=== PATIENT | female | born 1950 | race Caucasian/White ===

== ENCOUNTER 2018-05-03 12:00 | Outpatient (CLI) | payer MEDICARE, SELFPAY | END 2018-05-03 12:01 | PROVIDERS: Visit Provider Surgery | DX: Z85.038 Personal history of other malignant neoplasm of large intestine (principal) | CPT/HCPCS: 99214 ==

== ENCOUNTER 2018-05-30 13:36 | Emergency (ER) | payer MEDICARE, SELFPAY ==
[2018-05-30 13:47] VITALS: BP 155/89; PULSE 104; RESP 20; TEMP 36.2; O2SAT 96
[2018-05-30] MEDS: Normal Saline 1,000 ML 1000 ML IV (14:13)
[2018-05-30 14:15] LABS: Abs Immature Grans 0.02 k/cumm (0.0-0.09); Absolute Basophil Count 0.01 k/cumm (0.0-0.2); Absolute Eosinophil Count 0.01 k/cumm (0.0-0.7); Absolute Lymphocyte Count 0.78 k/cumm (1.2-3.4); Absolute Monocyte Count 0.13 k/cumm (0.11-0.7); Absolute Neutrophil Count 8.22 k/cumm (1.2-6.7); Basophils % 0.1; Eosinophils % 0.1; HCT 38.2 % (36.0-46.0); HGB 11.9 g/dL (12.0-15.5); Immature Grans % 0.2; Lymphocytes % 8.5; Mean Corp. HGB Concentration 31.2 g/dL (32.0-36.0); Mean Corpuscular Hemoglobin 24.8 pg (27.0-33.0); Mean Corpuscular Volume 79.6 fL (80-95); Mean Platelet Volume 8.6 fL (8.0-11.0); Monocytes % 1.4; Neutrophils % 89.7; Platelet Count 303 x1000/uL (130-400); RBC Distribution Width 17.4 % (11.7-14.6); White Blood Cell Count 9.17 k/cumm (4.4-10.8)
[2018-05-30] MEDS: fentaNYL 100 MCG/2 ML VIAL IVP (14:15)
--- NOTE | 2018-05-30 14:17 | ED.GENADUL_ITS ---
Discharge Plan Discharge Details Chief Complaint: Abd Prob Clinical Impression: Metastatic cancer, Acute UTI, Abdominal pain Reason For Visit: nausea Primary Care Provider: PATEL,LOCAL ED Provider: Jan Roth Disposition Patient Disposition: HOME Home Meds and New Rx's Prescriptions: New prochlorperazine maleate [Compazine] 10 mg tablet 10 mg PO Q8H PRN (Reason: nausea and vomiting) Qty: 14 RF: 0 nitrofurantoin monohyd/m-cryst [Macrobid] 100 mg capsule 100 mg PO BID Qty: 14 RF: 0 Continue hydromorphone [Dilaudid] 2 mg Tablet 1 tab PRN PRNRF: 0 furosemide 40 mg Tablet 40 mg PO DAILY RF: 0 Discharge Instructions Instructions: Acute Nausea and Vomiting (ED) Additional Instructions: your cat scan showed that your cancer is worsening follow up with your oncologist within a week if you have persistent vomit, fevers or severe worsening of pain return to the emergency department Discharge Data Discharge Physician: Jan Roth Medical Decision Making MDM Narrative Medical decision making narrative: 67 yo male with hx of colon cancer undergoing chemotherapy comes in with complaint of nausea and vomit for 4-5 days and abdominal pain for over a month. Denies chest pain or sob or fevers. Has mild tenderness on exam in the left quadrant without guarding or rebound. Will treat her symptoms, eval for pancreatitis and hepatitis and image to eval for possible sbo among other pathology pt feels significantly better, tolerating fluids at this time. Labs show no significant changes, her UA is suspicious for uti so will start abx for this, awaiting ct CT per vrad shows metastatic disease progression of her cancer, and mild hydronephrosis on the left due to this. Otherwise no acute findings. I discussed with her these results and she understands that her cancer is worsening. She is currently feeling well and stable for d/c. She understands she needs to see her oncologist this week. She will return to the emergency department for worsening symptoms Differential Diagnosis chemo side effects, sbo, colitis Medical Records Medical records reviewed: Yes I reviewed the patient's medical records. Imaging Data Radiologic Study: Attestation: I personally reviewed and interpreted this imaging study as follows: Imaging: CT Scan Radiologist's impression: vrad report reviewed Lab Data Lab results reviewed: Yes I reviewed the patient's lab results. HPI - General Adult General Mode of arrival: wheelchair . Date/Time Provider Initiated Documentation: 05/30/18 14:01 . Limitations to Documentation: no limitations . Information obtained by: patient . History of Present Illness 67 year old F presents to the emergency department with the chief complaint of nausea and vomit, described as severe, with intensity rated at 6. Quality is described as other (nausea), and is localized to the abdomen. Patient reports no radiation. Patient started experiencing this day(s) (5) and it has been constant. No relieving factors improve symptom(s), No exacerbating factors reported . Patient notes other (abdominal pain). Patient did receive the following treatments prior to arrival, other (zofran) Related Data Home Medications Medication Instructions Recorded Confirmed furosemide 40 mg PO DAILY 05/30/18 05/30/18 hydromorphone [Dilaudid] 1 tab PRN PRN 05/30/18 05/30/18 Previous Rx's Medication Instructions Recorded nitrofurantoin monohyd/m-cryst 100 mg PO BID #14 cap 05/30/18 [Macrobid] prochlorperazine maleate 10 mg PO Q8H PRN #14 tab 05/30/18 [Compazine] Allergies Allergy/AdvReac Type Severity Reaction Status Date / Time moxifloxacin [From Avelox] Allergy Severe Anaphylaxsi Unverified 05/21/18 13:23 s ibuprofen Allergy Intermediate Hives, Unverified 05/21/18 13:23 bleeding ondansetron [From Zofran] AdvReac Unverified 05/21/18 13:23 General Stated Complaint: Abd Prob EDSON: 3 Review of Systems Review of Systems All systems reviewed & are unremarkable except as noted in HPI and below Constitutional Denies chills, Denies fever(s) and Denies weakness Eyes Patient Denies loss of vision ENT Denies change in voice Cardiovascular Denies chest pain and Denies dyspnea Respiratory Denies dyspnea Gastrointestinal Reports abdominal pain, Reports nausea and Reports vomiting Genitourinary Denies dysuria Musculoskeletal Denies joint swelling Integumentary/Breasts Denies rash Neurologic Denies loss of vision and Denies weakness Psychiatric Denies depression Endocrine Denies cold intolerance and Denies heat intolerance Allergic/Immunologic Reports urticaria PFSH Medical History Abnormal vaginal bleeding COPD (chronic obstructive pulmonary disease) Morbid obesity with BMI of 40.0-44.9, adult Uterine fibroid Social History Smoking/Tobacco Use Status: Former Tobacco Use Surgical History Abdominal hysterectomy (~2001) section (~1982) Cholecystectomy (11/26/14) Colonoscopy - MAC (12/02/17) Oophrectomy, Both (~2001) Exam Const General: no acute distress HENMT Head: normal to inspection Ears: external ears normal General nose exam: external nose normal Mouth: moist mucous membranes Eyes General: appearance normal, both eyes and all related structures Neck Neck: normal visual inspection Resp Effort & Inspection: normal respiratory effort and able to speak in complete sentences Cardio Rate: regular rate GI Inspection: other (ostomy in place with brown stool in ostomy bag) Palpation: soft, not firm, no guarding, no hepatomegaly and tender in the LUQ Skin General skin exam: no rashes or lesions noted Neuro General: alert and oriented x3 Extrem General: normal to inspection Psych Mental Status: mental status grossly normal Course Vital Signs Temperature 36.2 C L 05/30/18 13:47 Pulse 104 H 05/30/18 13:47 Respiratory Rate 20 05/30/18 13:47 Blood Pressure 155/89 H 05/30/18 13:47 Pulse Oximetry 96 05/30/18 13:47 Temperature 36.2 C L 05/30/18 13:47 Pulse 104 H 05/30/18 13:47 Respiratory Rate 20 05/30/18 13:47 Blood Pressure 155/89 H 05/30/18 13:47 Pulse Oximetry 96 05/30/18 13:47
[2018-05-30 14:27] LABS: ALT 29 U/L (12-78); AST 21 U/L (15-37); Albumin 2.4 g/dL (3.4-5.0); Alkaline Phosphatase 140 U/L (46-116); Anion Gap 4.7 mmol/L (3-11); BUN 11 mg/dL (7-18); Bilirubin, Total 0.6 mg/dL (0.2-1.0); CO2 28.3 mmol/L (21.0-32.0); CREATININE 0.68 mg/dL (0.55-1.02); Calcium 8.5 mg/dL (8.5-10.1); Chloride 102 mmol/L (98-107); Glucose 127 mg/dL (70-100); Lipase 115 U/L (73-393); Potassium 4.1 mmol/L (3.5-5.1); Sodium 135 mmol/L (136-145)
[2018-05-30 14:49] LABS: Bilirubin Negative (Negative); Blood Large (Negative); Clarity Sl Cloudy; Glucose Negative (Negative); Ketones Trace mg/dL (Negative); Leukocyte Esterase Small (Negative); Nitrite Positive (Negative); Specific Gravity >= 1.030 (1.005-1.025); Urobilinogen 0.2 EU/dL (Up TO 0.2)
[2018-05-30] MEDS: Omnipaque 350 MG/ML 100 ML BTL IJ (14:55)
--- NOTE | 2018-05-30 14:57 | DI.CT_ITS ---
SYMPTOMS/DIAGNOSIS: ABDOMINAL PAIN, RECEIVING CHEMO FOR COLON CA CT OF THE ABDOMEN AND PELVIS: Images were performed from the lung bases through the ischial tuberosities after IV and without oral contrast. Comparison is made with October,. The lung bases are clear. There is a low density lesion seen inferiorly in the right lobe of the liver, suspicious for a metastasis. There is an additional peripheral lesion in the right lobe, which appears larger when compared with the previous exam and may also represent a metastatic lesion. The patient is status post cholecystectomy. There is stable mild biliary dilatation. The spleen, adrenals and pancreas are unremarkable. There are peripelvic renal cysts. The patient is now status post a left lower quadrant colostomy. The patient is again noted to be status post hysterectomy. There is marked wall thickening of the rectosigmoid in the region of the previously noted mass, worsening when compared with the previous exam. There is interval enlargement of the mass involving the posterior bladder and cervix which shows air bubbles which could indicate fistula formation or infection. This could represent metastases vs direct extension of tumor. The findings have worsened when compared with the previous exam. There is dilatation of the left renal pelvis and ureter extending down to the level of the bladder. There is no evidence of bowel obstruction. No adenopathy is seen. No lytic or blastic bony lesions are identified. IMPRESSION: Interval enlargement of mass in the sigmoid. Interval enlargement of mass at the posterior aspect of the bladder and cervix with multiple air bubbles, which could be related to fistula formation or infection. There is moderate left hydronephrosis secondary to the mass invading the posterior bladder.
[2018-05-30 15:00] LABS: C & S Indicated? Yes
[2018-05-30] MEDS: MacroBID 100 MG CAP PO (15:38)
--- NOTE | 2018-05-30 16:09 | DI.VRAD_ITS ---
EXAM: CT Abdomen and Pelvis With Intravenous Contrast EXAM DATE/TIME: 05/30/2018 2:08 PM CLINICAL HISTORY: 67 years old, female; Pain; Abdominal pain; Generalized; Patient HX: Abd pain, on chemo for colon CA TECHNIQUE: Axial computed tomography images of the abdomen and pelvis with intravenous contrast. All CT scans at this facility use at least one of these dose optimization techniques: automated exposure control; mA and/or kV adjustment per patient size (includes targeted exams where dose is matched to clinical indication); or iterative reconstruction. Coronal and sagittal reformatted images were created and reviewed. CONTRAST: 100 ml of omni 350 administered intravenously. COMPARISON: No relevant prior studies available. FINDINGS: Lower thorax: No acute findings. ABDOMEN: Liver: 10 mm hypodensity in the right lobe the liver 46 Hounsfield units. This likely represents metastatic disease. Additional 9 mm hypodensity in the right lobe of the liver. 30 Hounsfield units. May also represent metastatic disease. Gallbladder and bile ducts: Cholecystectomy Pancreas: Normal. No ductal dilation. Spleen: Normal. No splenomegaly. Adrenals: Normal. No mass. Kidneys and ureters: Left hydronephrosis and left hydroureter. The ureter inserts into inflamed segment of the bladder containing 3 cm bladder wall thickening . Stomach and bowel: Left lower quadrant ostomy. The rectosigmoid is markedly thickened and inflamed consistent with a history of colon cancer. Appendix: No evidence of appendicitis. PELVIS: Bladder: See Intraperitoneal Space Finding. Reproductive: Unremarkable as visualized. ABDOMEN and PELVIS: Intraperitoneal space: There is a complex mass with a bubble of air 6.9 x 5.6 cm. It is contiguous with the bladder (7:76). There is bladder wall thickening in the posterior bladder. This is worrisome for metastatic disease to the bladder. There may be necrotic component considering a bubble of air. Infection cannot be ruled out. Bones/joints: No acute fracture. No dislocation. Soft tissues: Unremarkable. Vasculature: Normal. No abdominal aortic aneurysm. Lymph nodes: Normal. No enlarged lymph nodes. Other findings: Multiple right pararenal cysts. IMPRESSION: 1. There is a complex mass with a bubble of air 6.9 x 5.6 cm. It is contiguous with the bladder (7:76). There is bladder wall thickening in the posterior bladder. This is worrisome for metastatic disease to the bladder. There may be necrotic component considering a bubble of air. Infection cannot be ruled out. 2. Left hydronephrosis and left hydroureter. The ureter inserts into inflamed segment of the bladder containing 3 cm bladder wall thickening . 3. Left lower quadrant ostomy. 4. The rectosigmoid is markedly thickened and inflamed consistent with a history of colon cancer. 5. 10 mm hypodensity in the right lobe the liver 46 Hounsfield units. This likely represents metastatic disease. Additional 9 mm hypodensity in the right lobe of the liver. 30 Hounsfield units. May also represent metastatic disease. THIS REPORT CONTAINS FINDINGS THAT MAY BE CRITICAL TO PATIENT CARE. The findings were verbally communicated via telephone conference with Jan Roth at 4:09 PM EDT on 05/30/2018. The findings were acknowledged and understood. Dictated and Authenticated by: Anuja Thompson MD. Ordering:CIRA HERNANDEZ MD
--- NOTE | 2018-05-31 10:29 | PDOC.ERCMPRO ---
Care Management Progress Note 05/31-Dr. Roth requested assistance with an oncology f/u appt this week for nausea and vomiting. H/O of Colon cancer. CT shows metastatic disease progression of her cancer. Called [facility] and they are closed as it is a holiday. This CM will call tomorrow morning and schedule a f/u appt, [phone].
== END 2018-05-30 16:29 | disposition home or self-care (01) ==
PROVIDERS: Emergency Provider Emergency Medicine
DX: N39.0 Urinary tract infection, site not specified (principal); R11.2 Nausea with vomiting, unspecified; R10.12 Left upper quadrant pain; R93.2 Abnormal findings on diagnostic imaging of liver and biliary tract; R93.41 Abnormal radiologic findings on diagnostic imaging of renal pelvis, ureter, or bladder; C19 Malignant neoplasm of rectosigmoid junction; Z79.899 Other long term (current) drug therapy; N13.39 Other hydronephrosis; N13.4 Hydroureter; Z93.3 Colostomy status; J44.9 Chronic obstructive pulmonary disease, unspecified; Z87.891 Personal history of nicotine dependence
CPT/HCPCS: 36415; 51701; 80053; 83690; 87077; 96361; 96365; 96375; 99285; 74177; 81003; 81015; 85025; 87086; 87186; J3010; J3490

== ENCOUNTER 2018-06-02 00:45 | Outpatient (CLI) | payer MEDICARE, SELFPAY ==
--- NOTE | 2018-06-02 11:50 | DI.CT_ITS ---
SYMPTOMS/DIAGNOSIS: RECTAL CANCER, C20 CT SCAN OF THE CHEST: CT scan of the chest was performed without intravenous contrast. IV contrast was not administered due to lack of IV access. There are no priors for comparison. There is atherosclerosis of the thoracic aorta, but no aneurysmal dilatation is present. The heart size is within normal limits. No significant pericardial effusion is seen. No significant mediastinal or hilar adenopathy is present. The patient has an Infusaport catheter. The tip of the catheter is in good position in the superior vena cava. No pleural effusion or pneumothorax is identified. There are a few small, noncalcified pulmonary nodules present. No focal consolidating infiltrates are seen. The tracheobronchial tree is unremarkable. No suspicious lytic or sclerotic lesions are present in the bone. IMPRESSION: 1. Noncontrast CT scan of the chest was performed due to lack of IV access. 2. Noncalcified pulmonary nodules present, raising the question of pulmonary metastatic disease.
== END 2018-06-02 01:05 ==
PROVIDERS: Visit Provider Internal Medicine Hematology & Oncology
DX: C20 Malignant neoplasm of rectum (principal); R91.8 Other nonspecific abnormal finding of lung field
CPT/HCPCS: 71250

== ENCOUNTER 2018-06-04 14:17 | Emergency (ER) | payer MEDICARE, SELFPAY ==
[2018-06-04] VITALS (47 sets, daily range): BP systolic 106–135; BP diastolic 55–88; PULSE 85–106; RESP 9–27; TEMP 36.5; O2SAT 92–98
[2018-06-04 14:41] LABS: Abs Immature Grans 0.01 k/cumm (0.0-0.09); Absolute Basophil Count 0.02 k/cumm (0.0-0.2); Absolute Lymphocyte Count 0.99 k/cumm (1.2-3.4); Absolute Monocyte Count 0.43 k/cumm (0.11-0.7); Absolute Neutrophil Count 3.78 k/cumm (1.2-6.7); Basophils % 0.4; HCT 34.3 % (36.0-46.0); HGB 10.7 g/dL (12.0-15.5); Immature Grans % 0.2; Lymphocytes % 18.9; Mean Corp. HGB Concentration 31.2 g/dL (32.0-36.0); Mean Corpuscular Hemoglobin 25.1 pg (27.0-33.0); Mean Corpuscular Volume 80.5 fL (80-95); Mean Platelet Volume 8.3 fL (8.0-11.0); Monocytes % 8.2; Neutrophils % 72.3; Platelet Count 279 x1000/uL (130-400); RBC 4.26 m/cumm (4.00-5.20); RBC Distribution Width 17.3 % (11.7-14.6); White Blood Cell Count 5.23 k/cumm (4.4-10.8)
[2018-06-04] MEDS: fentaNYL 100 MCG/2 ML VIAL IVP (14:44)
--- NOTE | 2018-06-04 14:45 | ED.GENADUL_ITS ---
Discharge Plan Disposition Patient Disposition: HOME Condition: Stable Discharge Details Chief Complaint: Chest Pain Clinical Impression: Chest pain Primary Care Provider: PATEL,LOCAL ED Provider: Jan Roth Home Meds and New Rx's Prescriptions: Continue hydromorphone [Dilaudid] 2 mg Tablet 1 tab PRN PRNRF: 0 furosemide 40 mg Tablet 40 mg PO DAILY RF: 0 prochlorperazine maleate [Compazine] 10 mg tablet 10 mg PO Q8H PRN (Reason: nausea and vomiting) Qty: 14 RF: 0 nitrofurantoin monohyd/m-cryst [Macrobid] 100 mg capsule 100 mg PO BID Qty: 14 RF: 0 Discharge Instructions Instructions: Chest Pain (ED) Discharge Data Discharge Physician: Jan Roth Medical Decision Making MDM Narrative Medical decision making narrative: 67 yo female with hx of colorectal cancer who comes in with complaints of chest pain. She states she has a hx of esophageal spasms and feels this is similar. She was getting IVF and they had just accessed her port at the cancer center when she started to have pain in her chest. She denies radiation of the mikayla and localizes in the anterior mid chest. no n/v, fevers, chills, sob, cough, diarphoresis. She has had recent CT' s showing progression of her cancer. Her pain doesn't seem typical of acs, HEART score is 3 based on age and risk factors, will send troponin. I did recommend that we perofrm CTA to eval for PE given her cancer history and moderate wells score. the patient declined to have this as she had a CT of her chest without contrast earlier this week and has the capacity to make her own deciions and understands the risks of not pursuing w/u with CTA including and disability and is willing to take these risks. She was advised to advise me if she changes her mind on the CTA. Unlikely dissection given lack of tearing back pain and normal vascular exam so doubt dissection but given she decilnes CT can't adequately rule this out which she understands. No cough or fevers and clear lungs and no pleuritic chest pain so doubt pna and ptx so do not feel chest xray indicated pt stood up and states her pain went away completely after this. She has no signficant new lab abnormalities, first troponin negative, will order delta troponin, remains HD stable. Still declines CTA pt remains without chest pain now after standing, second troponin negative and still declines CTA. She has no pcp so will have her on our f/u list to try and get into one for f/u return precautions given Differential Diagnosis nstemi, unstable angina, angina, chest wall pain, mets, esophageal spasm Lab Data Lab results reviewed: Yes I reviewed the patient's lab results. ECG Data Attestation: I personally reviewed and interpreted this ECG (s) as follows: Prior ECG tracings: not available for review Interpretation: sinus tachycardia, normal axis, rate of 103, normal pr, no acute ischemic findings HPI - General Adult General Mode of arrival: EMS . Date/Time Provider Initiated Documentation: 06/04/18 14:20 . Limitations to Documentation: no limitations . Information obtained by: patient . History of Present Illness 67 year old F presents to the emergency department with the chief complaint of chest pain, described as moderate, with intensity rated at 5. Quality is described as aching, and is localized to the chest. Patient reports no radiation. Patient started experiencing this minute(s) (90) and it has been constant. No relieving factors improve symptom(s), No exacerbating factors reported . Patient notes no other symptoms.. Patient did receive the following treatments prior to arrival, none and other (324mg asa given by ems) Related Data Home Medications Medication Instructions Recorded Confirmed furosemide 40 mg PO DAILY 05/30/18 05/30/18 hydromorphone [Dilaudid] 1 tab PRN PRN 05/30/18 05/30/18 Previous Rx's Medication Instructions Recorded nitrofurantoin monohyd/m-cryst 100 mg PO BID #14 cap 05/30/18 [Macrobid] prochlorperazine maleate 10 mg PO Q8H PRN #14 tab 05/30/18 [Compazine] Allergies Allergy/AdvReac Type Severity Reaction Status Date / Time moxifloxacin [From Avelox] Allergy Severe Anaphylaxsi Unverified 05/21/18 13:23 s ibuprofen Allergy Intermediate Hives, Unverified 05/21/18 13:23 bleeding ondansetron [From Zofran] AdvReac Unverified 05/21/18 13:23 General Stated Complaint: Chest Pain EDSON: 2 Review of Systems Review of Systems All systems reviewed & are unremarkable except as noted in HPI and below Constitutional Denies chills, Denies fever(s) and Denies weakness Eyes Patient Denies loss of vision ENT Denies change in voice Cardiovascular Reports chest pain and Denies dyspnea Respiratory Denies dyspnea Gastrointestinal Denies abdominal pain, Denies nausea and Denies vomiting Genitourinary Denies dysuria Musculoskeletal Denies joint swelling Integumentary/Breasts Denies rash Neurologic Denies loss of vision and Denies weakness Psychiatric Denies depression Endocrine Denies cold intolerance and Denies heat intolerance Allergic/Immunologic Reports urticaria Exam Const General: no acute distress Orientation: alert HENMT Head: normal to inspection Ears: external ears normal General nose exam: external nose normal Mouth: moist mucous membranes Eyes General: appearance normal, both eyes and all related structures Neck Neck: normal visual inspection Resp Effort & Inspection: normal respiratory effort, able to speak in complete sentences, normal respiratory pattern and no audible wheezes Cardio Jugular venous pressure: no JVD Rate: regular rate Rhythm: regular rhythm Skin General skin exam: no rashes or lesions noted Neuro General: alert and oriented x3 Extrem General: normal to inspection Psych Mental Status: mental status grossly normal Course Vital Signs Temperature 36.5 C 06/04/18 14:19 Pulse 104 H 06/04/18 14:19 Respiratory Rate 16 06/04/18 14:19 Blood Pressure 135/66 06/04/18 14:19 Pulse Oximetry 97 06/04/18 14:19 Temperature 36.5 C 06/04/18 14:19 Pulse 104 H 06/04/18 14:19 Respiratory Rate 12 06/04/18 14:32 Blood Pressure 135/66 06/04/18 14:19 Pulse Oximetry 97 06/04/18 14:19
[2018-06-04] MEDS: Normal Saline Flush 10 ML SYR IVP (14:46)
[2018-06-04 14:50] LABS: INR 1.1 (1.0-3.5); PTT Activated 21.4 sec (21.0-31.4); Prothrombin Time 10.3 sec (9.3-10.8)
[2018-06-04 14:55] LABS: ALT 16 U/L (12-78); AST 12 U/L (15-37); Albumin 2.2 g/dL (3.4-5.0); Alkaline Phosphatase 132 U/L (46-116); Anion Gap 3.2 mmol/L (3-11); BUN 9 mg/dL (7-18); Bilirubin, Total 0.3 mg/dL (0.2-1.0); CO2 29.8 mmol/L (21.0-32.0); CREATININE 0.67 mg/dL (0.55-1.02); Calcium 8.2 mg/dL (8.5-10.1); Chloride 104 mmol/L (98-107); Glucose 165 mg/dL (70-100); Magnesium 2.1 mg/dL (1.8-2.4); Potassium 3.8 mmol/L (3.5-5.1); Sodium 137 mmol/L (136-145); Total Protein 6.4 g/dL (6.4-8.2)
[2018-06-04 14:59] LABS: Troponin I < 0.02 ng/mL (0.00-0.06)
--- NOTE | 2018-06-04 15:28 | NUR.NOTE ---
Nursing Note: Patient requests to use the bathroom. Assisted to standing with minimal assist, walk to bathroom. Patient states she feels SOOO much better upright. Once back in the room, she asks to sit up because it feels better than lying down. aware.
--- NOTE | 2018-06-04 16:11 | NUR.NOTE ---
Nursing Note:Patient request for sandwich. Per , ok to order. Patient sitting in bed eating meal tray.
[2018-06-04 18:10] LABS: Troponin I < 0.02 ng/mL (0.00-0.06)
--- NOTE | 2018-06-04 18:38 | NUR.NOTE ---
Nursing Note:used 20 ml ns to flush port. Unable to scan d/t code black.
--- NOTE | 2018-06-07 08:48 | PDOC.ERCMPRO ---
Care Management Progress Note 06/07/18-Pt seen on 06/04/[address] Roth for chect pain. Pt has colorectal cancer and reports she has no PCP. Referral to [facility] as Samy Buck was process control tech.
--- NOTE | 2018-06-07 08:53 | CMPROGNOTE_ITS ---
Care Management Progress Note 06/07/18-Pt seen on 06/04/[address] Roth for chect pain. Pt has colorectal cancer and reports she has no PCP. Referral to [facility] as Samy Buck was waste collection driver.
== END 2018-06-04 18:45 | disposition home or self-care (01) ==
PROVIDERS: Emergency Provider Emergency Medicine
DX: R07.89 Other chest pain (principal); Z53.29 Procedure and treatment not carried out because of patient's decision for other reasons; C19 Malignant neoplasm of rectosigmoid junction
CPT/HCPCS: 36415; 36591; 80053; 93005; 96374; 96523; 99285; 82378; 83735; 84484; 85025; 85610; 85730; 93010; J3010

== ENCOUNTER 2018-06-11 00:34 | Outpatient (RCR) | payer MEDICARE, SELFPAY ==
[2018-06-04] MEDS: Normal Saline Flush 10 ML SYR IVP (10:30)
[2018-06-04] MEDS: Heparin 500 UNITS/5 ML SYRINGE IV (10:30)
[2018-06-04 11:13] LABS: Abs Immature Grans 0.01 k/cumm (0.0-0.09); Absolute Basophil Count 0.02 k/cumm (0.0-0.2); Absolute Lymphocyte Count 1.15 k/cumm (1.2-3.4); Absolute Monocyte Count 0.46 k/cumm (0.11-0.7); Absolute Neutrophil Count 4.32 k/cumm (1.2-6.7); Basophils % 0.3; HCT 36.8 % (36.0-46.0); HGB 11.5 g/dL (12.0-15.5); Immature Grans % 0.2; Lymphocytes % 19.3; Mean Corp. HGB Concentration 31.3 g/dL (32.0-36.0); Mean Corpuscular Hemoglobin 25.2 pg (27.0-33.0); Mean Corpuscular Volume 80.5 fL (80-95); Mean Platelet Volume 8.3 fL (8.0-11.0); Monocytes % 7.7; Neutrophils % 72.5; Platelet Count 294 x1000/uL (130-400); RBC 4.57 m/cumm (4.00-5.20); RBC Distribution Width 17.3 % (11.7-14.6); White Blood Cell Count 5.96 k/cumm (4.4-10.8)
[2018-06-04 11:26] LABS: ALT 18 U/L (12-78); AST 13 U/L (15-37); Albumin 2.4 g/dL (3.4-5.0); Alkaline Phosphatase 142 U/L (46-116); Anion Gap 4.1 mmol/L (3-11); BUN 10 mg/dL (7-18); Bilirubin, Total 0.3 mg/dL (0.2-1.0); CO2 30.9 mmol/L (21.0-32.0); CREATININE 0.83 mg/dL (0.55-1.02); Calcium 8.4 mg/dL (8.5-10.1); Chloride 103 mmol/L (98-107); Glucose 156 mg/dL (70-100); Potassium 3.8 mmol/L (3.5-5.1); Sodium 138 mmol/L (136-145)
[2018-06-07 09:53] LABS: CEA 4.3 ng/ml
== END 2018-06-27 23:59 | disposition home or self-care (01) ==
LOC: INF 00:34
PROVIDERS: Visit Provider Internal Medicine Hematology & Oncology
DX: C20 Malignant neoplasm of rectum (principal); Z45.2 Encounter for adjustment and management of vascular access device
CPT/HCPCS: 36415; 80053; 96523; 82378; 85025

== ENCOUNTER 2018-06-25 14:12 | Outpatient (RCR) | payer MEDICARE, SELFPAY ==
[2018-06-25] MEDS: Normal Saline Flush 10 ML SYR 30 ML IVP (14:15)
[2018-06-25] MEDS: Heparin 500 UNITS/5 ML SYRINGE (14:15)
[2018-06-25 14:52] LABS: Abs Immature Grans 0.02 k/cumm (0.0-0.09); Absolute Basophil Count 0.01 k/cumm (0.0-0.2); Absolute Eosinophil Count 0.01 k/cumm (0.0-0.7); Absolute Lymphocyte Count 0.86 k/cumm (1.2-3.4); Absolute Neutrophil Count 3.09 k/cumm (1.2-6.7); Basophils % 0.2; Eosinophils % 0.2; HCT 35.4 % (36.0-46.0); HGB 10.8 g/dL (12.0-15.5); Immature Grans % 0.5; Mean Corp. HGB Concentration 30.5 g/dL (32.0-36.0); Mean Corpuscular Hemoglobin 25.3 pg (27.0-33.0); Mean Corpuscular Volume 82.9 fL (80-95); Mean Platelet Volume 8.9 fL (8.0-11.0); Neutrophils % 72.1; Platelet Count 200 x1000/uL (130-400); RBC 4.27 m/cumm (4.00-5.20); RBC Distribution Width 17.9 % (11.7-14.6); White Blood Cell Count 4.29 k/cumm (4.4-10.8)
[2018-06-25 14:57] LABS: Bilirubin Negative (Negative); Blood Moderate (Negative); Clarity Cloudy; Glucose Negative (Negative); Ketones Negative (Negative); Leukocyte Esterase Moderate (Negative); Nitrite Positive (Negative); Specific Gravity >= 1.030 (1.005-1.025); Urobilinogen 0.2 EU/dL (Up TO 0.2)
[2018-06-25 15:04] LABS: ALT 16 U/L (12-78); AST 15 U/L (15-37); Albumin 2.3 g/dL (3.4-5.0); Alkaline Phosphatase 110 U/L (46-116); Anion Gap 8.3 mmol/L (3-11); BUN 12 mg/dL (7-18); Bilirubin, Total 0.4 mg/dL (0.2-1.0); CO2 27.7 mmol/L (21.0-32.0); CREATININE 0.84 mg/dL (0.55-1.02); Calcium 8.5 mg/dL (8.5-10.1); Chloride 105 mmol/L (98-107); Glucose 159 mg/dL (70-100); Potassium 3.9 mmol/L (3.5-5.1); Sodium 141 mmol/L (136-145); Total Protein 6.3 g/dL (6.4-8.2)
[2018-06-25 15:06] LABS: C & S Indicated? Yes; WBC >50 HPF (0-5)
[2018-06-28 10:47] LABS: CEA 4.5 ng/ml
== END 2018-06-27 23:59 | disposition home or self-care (01) ==
LOC: INF 14:12
PROVIDERS: Visit Provider Internal Medicine Medical Oncology
DX: C20 Malignant neoplasm of rectum (principal); Z45.2 Encounter for adjustment and management of vascular access device
CPT/HCPCS: 36591; 80053; 87077; 81003; 81015; 82378; 85025; 87086; 87186

== ENCOUNTER 2018-07-20 00:46 | Outpatient (CLI) | payer MEDICARE, SELFPAY ==
--- NOTE | 2018-07-20 11:00 | DI.CT_ITS ---
SYMPTOMS/DIAGNOSIS: RECTAL CA WITH LIVER METS S/P RADIATION TO PELVIS, RESTAGING EXAM CT OF THE CHEST, ABDOMEN AND PELVIS: Comparison is made with abdominal and pelvic CT dated May, and chest CT dated May,. CHEST: There are a few bilateral tiny noncalcified pulmonary nodules, which appear unchanged from previous exam, seen in the right lower lobe, right middle lobe and posterior left lower lobe. No infiltrates or effusions are seen. There is no evidence of adenopathy. No suspicious bony lesions are seen. A port is noted over the right upper chest, the tip in the SVC, unchanged. The heart size is normal. There is minimal aortic calcification. IMPRESSION: Stable tiny lung nodules, less than 5 mm. The findings appear to represent benign disease, metastases cannot be entirely excluded. ABDOMINAL AND PELVIC CT: There is a stable small low density lesion peripherally in the right lobe of the liver. No new liver lesions are identified. The spleen, adrenals and pancreas are unremarkable. There is stable dilatation of the left renal pelvis. There is now dilatation of the right renal pelvis not previously seen. There has been marked interval decrease in size of the previously noted sigmoid mass, as well as a previously noted adjacent mass involving the cervix and posterior bladder. There is no evidence of bowel obstruction. A left- sided colostomy is noted. There is continued thickening of the bladder wall posteriorly, but the appearance appears improved. Tiny adjacent pelvic lymph nodes and bilateral external iliac lymph nodes measure less than a centimeter in size and appear unchanged. There are small bilateral groin lymph nodes, also unchanged. No ascites is present. There is an ill-defined lucency on the left side of S1. IMPRESSION: Marked interval decrease in size of sigmoid mass and mass at the posterior bladder and cervix. Stable small liver metastasis. Stable left hydronephrosis. New mild right hydronephrosis. Lucency at the left side of the S1 segment of the sacrum could represent benign or metastatic disease.
[2018-07-20] MEDS: Omnipaque 350 MG/ML 100 ML BTL IJ (11:11)
[2018-07-20] MEDS: Omnipaque 350 MG/ML 50 ML BTL IJ (11:12)
== END 2018-07-20 01:06 ==
PROVIDERS: Visit Provider Internal Medicine Hematology & Oncology
DX: C20 Malignant neoplasm of rectum (principal); C18.8 Malignant neoplasm of overlapping sites of colon; C78.7 Secondary malignant neoplasm of liver and intrahepatic bile duct; R91.8 Other nonspecific abnormal finding of lung field; Z92.3 Personal history of irradiation; N13.30 Unspecified hydronephrosis
CPT/HCPCS: 74177; 71260; J3490; Q9967

== ENCOUNTER 2018-07-20 00:54 | Outpatient (RCR) | payer MEDICARE, SELFPAY ==
[2018-07-09] MEDS: Normal Saline Flush 10 ML SYR IVP (07:55)
[2018-07-09] MEDS: Heparin 500 UNITS/5 ML SYRINGE IV (07:55)
[2018-07-09 08:33] LABS: Absolute Basophil Count 0.01 k/cumm (0.0-0.2); Absolute Eosinophil Count 0.03 k/cumm (0.0-0.7); Absolute Lymphocyte Count 0.91 k/cumm (1.2-3.4); Absolute Monocyte Count 0.28 k/cumm (0.11-0.7); Absolute Neutrophil Count 2.02 k/cumm (1.2-6.7); Basophils % 0.3; Eosinophils % 0.9; HCT 35.6 % (36.0-46.0); HGB 10.9 g/dL (12.0-15.5); Mean Corp. HGB Concentration 30.6 g/dL (32.0-36.0); Mean Corpuscular Hemoglobin 25.8 pg (27.0-33.0); Mean Corpuscular Volume 84.2 fL (80-95); Mean Platelet Volume 8.5 fL (8.0-11.0); Monocytes % 8.6; Neutrophils % 62.2; Platelet Count 207 x1000/uL (130-400); RBC 4.23 m/cumm (4.00-5.20); RBC Distribution Width 18.6 % (11.7-14.6); White Blood Cell Count 3.25 k/cumm (4.4-10.8)
[2018-07-09 08:46] LABS: ALT 22 U/L (12-78); AST 16 U/L (15-37); Albumin 2.7 g/dL (3.4-5.0); Alkaline Phosphatase 120 U/L (46-116); Anion Gap 4.1 mmol/L (3-11); BUN 15 mg/dL (7-18); Bilirubin, Total 0.4 mg/dL (0.2-1.0); CO2 29.9 mmol/L (21.0-32.0); CREATININE 0.63 mg/dL (0.55-1.02); Calcium 8.5 mg/dL (8.5-10.1); Chloride 106 mmol/L (98-107); Glucose 111 mg/dL (70-100); Potassium 4.2 mmol/L (3.5-5.1); Sodium 140 mmol/L (136-145); Total Protein 6.7 g/dL (6.4-8.2)
[2018-07-12 10:07] LABS: CEA 3.6 ng/ml
[2018-07-20] MEDS: Normal Saline Flush 10 ML SYR IVP (08:55)
[2018-07-20] MEDS: Heparin 500 UNITS/5 ML SYRINGE IV (08:55)
[2018-07-20 09:39] LABS: Abs Immature Grans 0.01 k/cumm (0.0-0.09); Absolute Basophil Count 0.01 k/cumm (0.0-0.2); Absolute Eosinophil Count 0.01 k/cumm (0.0-0.7); Absolute Lymphocyte Count 0.95 k/cumm (1.2-3.4); Absolute Monocyte Count 0.39 k/cumm (0.11-0.7); Absolute Neutrophil Count 2.93 k/cumm (1.2-6.7); Basophils % 0.2; Eosinophils % 0.2; HCT 33.9 % (36.0-46.0); HGB 10.4 g/dL (12.0-15.5); Immature Grans % 0.2; Lymphocytes % 22.1; Mean Corp. HGB Concentration 30.7 g/dL (32.0-36.0); Mean Corpuscular Hemoglobin 25.9 pg (27.0-33.0); Mean Corpuscular Volume 84.3 fL (80-95); Mean Platelet Volume 8.6 fL (8.0-11.0); Monocytes % 9.1; Neutrophils % 68.2; Platelet Count 225 x1000/uL (130-400); RBC 4.02 m/cumm (4.00-5.20); RBC Distribution Width 18.7 % (11.7-14.6); White Blood Cell Count 4.29 k/cumm (4.4-10.8)
[2018-07-20 09:54] LABS: Anisocytosis 2+; Diff Comment RBC Morph Reviewed; Hypochromasia 1+; Macrocytosis 1+; Microcytosis 1+; Polychromasia Present
[2018-07-20 09:56] LABS: ALT 21 U/L (12-78); AST 16 U/L (15-37); Albumin 2.6 g/dL (3.4-5.0); Alkaline Phosphatase 100 U/L (46-116); Anion Gap 6.5 mmol/L (3-11); BUN 14 mg/dL (7-18); Bilirubin, Total 0.4 mg/dL (0.2-1.0); CO2 28.5 mmol/L (21.0-32.0); CREATININE 0.61 mg/dL (0.55-1.02); Calcium 8.7 mg/dL (8.5-10.1); Chloride 105 mmol/L (98-107); Glucose 116 mg/dL (70-100); Potassium 3.7 mmol/L (3.5-5.1); Sodium 140 mmol/L (136-145); Total Protein 6.3 g/dL (6.4-8.2)
[2018-07-21 10:35] LABS: CEA 3.1 ng/ml
== END 2018-07-28 23:59 | disposition home or self-care (01) ==
LOC: INF 00:54
PROVIDERS: Visit Provider Internal Medicine Hematology & Oncology
DX: C20 Malignant neoplasm of rectum (principal); Z45.2 Encounter for adjustment and management of vascular access device
CPT/HCPCS: 36591; 74177; 80053; 71260; 82378; 85025; J3490; Q9967

== ENCOUNTER 2018-08-20 01:01 | Outpatient (RCR) | payer MEDICARE, SELFPAY ==
[2018-07-30] MEDS: Heparin 500 UNITS/5 ML SYRINGE IV (11:45)
[2018-07-30] MEDS: Normal Saline Flush 10 ML SYR IVP (11:45)
[2018-07-30 12:30] LABS: Abs Immature Grans 0.01 k/cumm (0.0-0.09); Absolute Basophil Count 0.02 k/cumm (0.0-0.2); Absolute Eosinophil Count 0.01 k/cumm (0.0-0.7); Absolute Lymphocyte Count 0.95 k/cumm (1.2-3.4); Absolute Monocyte Count 0.39 k/cumm (0.11-0.7); Basophils % 0.4; Eosinophils % 0.2; Immature Grans % 0.2; Lymphocytes % 20.3; Mean Corp. HGB Concentration 31.6 g/dL (32.0-36.0); Mean Corpuscular Hemoglobin 26.1 pg (27.0-33.0); Mean Corpuscular Volume 82.8 fL (80-95); Mean Platelet Volume 8.9 fL (8.0-11.0); Monocytes % 8.3; Neutrophils % 70.6; Platelet Count 236 x1000/uL (130-400); RBC 4.59 m/cumm (4.00-5.20); RBC Distribution Width 18.4 % (11.7-14.6); White Blood Cell Count 4.68 k/cumm (4.4-10.8)
[2018-07-30 12:39] LABS: ALT 23 U/L (12-78); AST 22 U/L (15-37); Albumin 2.9 g/dL (3.4-5.0); Alkaline Phosphatase 119 U/L (46-116); Anion Gap 8.9 mmol/L (3-11); BUN 15 mg/dL (7-18); Bilirubin, Total 0.7 mg/dL (0.2-1.0); CO2 28.1 mmol/L (21.0-32.0); CREATININE 0.62 mg/dL (0.55-1.02); Calcium 9.1 mg/dL (8.5-10.1); Chloride 103 mmol/L (98-107); Glucose 133 mg/dL (70-100); Potassium 3.9 mmol/L (3.5-5.1); Sodium 140 mmol/L (136-145); Total Protein 7.2 g/dL (6.4-8.2)
[2018-08-02 10:10] LABS: CEA 2.6 ng/ml
[2018-08-20] MEDS: Normal Saline Flush 10 ML SYR IVP (12:30)
[2018-08-20 13:06] LABS: Abs Immature Grans 0.03 k/cumm (0.0-0.09); Absolute Basophil Count 0.02 k/cumm (0.0-0.2); Absolute Eosinophil Count 0.01 k/cumm (0.0-0.7); Absolute Lymphocyte Count 1.19 k/cumm (1.2-3.4); Absolute Monocyte Count 0.47 k/cumm (0.11-0.7); Absolute Neutrophil Count 3.61 k/cumm (1.2-6.7); Basophils % 0.4; Eosinophils % 0.2; HCT 37.2 % (36.0-46.0); HGB 11.4 g/dL (12.0-15.5); Immature Grans % 0.6; Lymphocytes % 22.3; Mean Corp. HGB Concentration 30.6 g/dL (32.0-36.0); Mean Corpuscular Hemoglobin 25.4 pg (27.0-33.0); Mean Corpuscular Volume 82.9 fL (80-95); Monocytes % 8.8; Neutrophils % 67.7; Platelet Count 194 x1000/uL (130-400); RBC 4.49 m/cumm (4.00-5.20); RBC Distribution Width 18.2 % (11.7-14.6); White Blood Cell Count 5.33 k/cumm (4.4-10.8)
[2018-08-20 13:21] LABS: ALT 18 U/L (12-78); AST 16 U/L (15-37); Albumin 2.9 g/dL (3.4-5.0); Alkaline Phosphatase 116 U/L (46-116); Anion Gap 4.4 mmol/L (3-11); BUN 12 mg/dL (7-18); Bilirubin, Total 0.6 mg/dL (0.2-1.0); CO2 29.6 mmol/L (21.0-32.0); CREATININE 0.67 mg/dL (0.55-1.02); Calcium 8.9 mg/dL (8.5-10.1); Chloride 104 mmol/L (98-107); Glucose 109 mg/dL (70-100); Potassium 3.8 mmol/L (3.5-5.1); Sodium 138 mmol/L (136-145)
== END 2018-08-27 23:59 | disposition home or self-care (01) ==
LOC: INF 01:01
PROVIDERS: Visit Provider Internal Medicine Hematology & Oncology
DX: C20 Malignant neoplasm of rectum (principal); Z45.2 Encounter for adjustment and management of vascular access device
CPT/HCPCS: 36415; 36591; 80053; 96523; 82378; 85025

== ENCOUNTER 2018-09-17 01:33 | Outpatient (RCR) | payer MEDICARE, SELFPAY ==
[2018-09-03] MEDS: Normal Saline Flush 10 ML SYR IVP (10:27)
[2018-09-03] MEDS: Heparin 500 UNITS/5 ML SYRINGE IV (10:27)
[2018-09-03 10:49] LABS: Abs Immature Grans 0.02 k/cumm (0.0-0.09); Absolute Basophil Count 0.01 k/cumm (0.0-0.2); Absolute Monocyte Count 0.49 k/cumm (0.11-0.7); Absolute Neutrophil Count 2.33 k/cumm (1.2-6.7); Basophils % 0.3; HCT 37.3 % (36.0-46.0); HGB 11.7 g/dL (12.0-15.5); Immature Grans % 0.5; Mean Corp. HGB Concentration 31.4 g/dL (32.0-36.0); Mean Corpuscular Hemoglobin 26.2 pg (27.0-33.0); Mean Corpuscular Volume 83.4 fL (80-95); Mean Platelet Volume 8.8 fL (8.0-11.0); Monocytes % 12.7; Neutrophils % 60.5; Platelet Count 220 x1000/uL (130-400); RBC 4.47 m/cumm (4.00-5.20); RBC Distribution Width 18.9 % (11.7-14.6); White Blood Cell Count 3.85 k/cumm (4.4-10.8)
[2018-09-03 11:10] LABS: ALT 35 U/L (12-78); AST 26 U/L (15-37); Albumin 2.9 g/dL (3.4-5.0); Alkaline Phosphatase 124 U/L (46-116); Anion Gap 7.1 mmol/L (3-11); BUN 15 mg/dL (7-18); Bilirubin, Total 0.4 mg/dL (0.2-1.0); CO2 28.9 mmol/L (21.0-32.0); CREATININE 0.65 mg/dL (0.55-1.02); Calcium 8.5 mg/dL (8.5-10.1); Chloride 104 mmol/L (98-107); Glucose 134 mg/dL (70-100); Potassium 4.1 mmol/L (3.5-5.1); Sodium 140 mmol/L (136-145); Total Protein 6.8 g/dL (6.4-8.2)
[2018-09-17] MEDS: Heparin 500 UNITS/5 ML SYRINGE IV (12:56)
[2018-09-17] MEDS: Normal Saline Flush 10 ML SYR IVP (12:56)
[2018-09-17 13:15] LABS: Abs Immature Grans 0.03 k/cumm (0.0-0.09); Absolute Basophil Count 0.01 k/cumm (0.0-0.2); Absolute Eosinophil Count 0.01 k/cumm (0.0-0.7); Absolute Lymphocyte Count 1.18 k/cumm (1.2-3.4); Absolute Monocyte Count 0.56 k/cumm (0.11-0.7); Absolute Neutrophil Count 2.58 k/cumm (1.2-6.7); Basophils % 0.2; Eosinophils % 0.2; HCT 36.1 % (36.0-46.0); HGB 11.3 g/dL (12.0-15.5); Immature Grans % 0.7; Mean Corp. HGB Concentration 31.3 g/dL (32.0-36.0); Mean Corpuscular Hemoglobin 26.4 pg (27.0-33.0); Mean Corpuscular Volume 84.3 fL (80-95); Mean Platelet Volume 8.5 fL (8.0-11.0); Monocytes % 12.8; Neutrophils % 59.1; Platelet Count 212 x1000/uL (130-400); RBC 4.28 m/cumm (4.00-5.20); RBC Distribution Width 18.2 % (11.7-14.6); White Blood Cell Count 4.37 k/cumm (4.4-10.8)
[2018-09-17 13:30] LABS: ALT 28 U/L (12-78); AST 21 U/L (15-37); Albumin 2.8 g/dL (3.4-5.0); Alkaline Phosphatase 125 U/L (46-116); Anion Gap 7.5 mmol/L (3-11); BUN 12 mg/dL (7-18); Bilirubin, Total 0.4 mg/dL (0.2-1.0); CO2 28.5 mmol/L (21.0-32.0); Calcium 8.4 mg/dL (8.5-10.1); Chloride 104 mmol/L (98-107); Glucose 165 mg/dL (70-100); Potassium 3.5 mmol/L (3.5-5.1); Sodium 140 mmol/L (136-145); Total Protein 6.8 g/dL (6.4-8.2)
[2018-09-17 14:54] LABS: Iron 38 ug/dL (50-175); Total Iron Binding Capacity 318 ug/dL (250-450); Transferrin Sat 12 % (15-50)
[2018-09-17 15:21] LABS: Ferritin 18 ng/mL (8-388); Vitamin B12 237 pg/mL (193-986)
[2018-09-17 16:14] LABS: Folate > 20.0 ng/mL (8.6-20.0)
[2018-09-20 10:14] LABS: CEA 3.4 ng/ml
== END 2018-09-27 23:59 | disposition home or self-care (01) ==
LOC: INF 01:33
PROVIDERS: Nurse Practitioner Adult Health; Visit Provider Internal Medicine Hematology & Oncology
DX: C20 Malignant neoplasm of rectum (principal); Z45.2 Encounter for adjustment and management of vascular access device
CPT/HCPCS: 36591; 80053; 96523; 82378; 82607; 82728; 82746; 83540; 83550; 85025

== ENCOUNTER 2018-10-06 00:17 | Outpatient (CLI) | payer MEDICARE, SELFPAY ==
[2018-10-06] MEDS: Omnipaque 350 MG/ML 100 ML BTL IV (11:02)
[2018-10-06] MEDS: Breeza Beverage 473 ML BTL PO ×2 (11:03→11:04)
[2018-10-06] MEDS: Omnipaque 350 MG/ML 50 ML BTL PO (11:03)
--- NOTE | 2018-10-06 11:06 | DI.CT_ITS ---
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 Comparison examination is 07/20/18. The liver is normal in size. The hypodense lesion in the lateral aspect of the right lobe of the liver is unchanged. No new hepatic lesions are seen. The portal and superior mesenteric veins are patent. The patient is status post cholecystectomy. There is no biliary ductal dilatation. The pancreas, spleen and adrenal glands are unremarkable. The kidneys show normal and symmetric enhancement. No evidence of a solid renal mass is present. There are prominent extrarenal pelves but the ureters appear normal in caliber. The urinary bladder is intact. The mass involving the posterior urinary bladder and cecum measures 4.8 cm. AP by 4.6 cm. craniocaudad. This compares with 4.5 cm. by 4.3 cm. on the examination from 07/20/18 (series 13, image 49). The mass seen in the sigmoid colon measures 3.5 cm. craniocaudad by 4.5 cm. AP compared with 3.2 cm. by 4.3 cm. on 07/20/18 (series 13, image49). There is again seen a double barrel left lower quadrant ostomy. The remainder of the bowel is unremarkable. No change in the size of the abdominal or pelvic lymph nodes is noted. No abdominal or pelvic ascites or pneumoperitoneum is present. The lucency in the left sacrum is unchanged. No aggressive osseous lesions are identified. Degenerative changes are seen in the spine. IMPRESSION: 1. Stable sigmoid mass. 2. Slight interval increase in size of mass involving the posterior urinary bladder and cervix. 3. Stable hepatic mass. 4. Stable sacral lesion. CHEST: The thoracic aorta is of normal caliber. No aneurysmal dilatation is seen. Heart size is within normal limits. No significant pericardial effusion is seen. No significant thoracic adenopathy is appreciated. There is an indwelling central venous catheter in good position. No pleural effusion or pneumothorax is identified. No focal infiltrates are seen. The tracheobronchial tree is unremarkable. No new pulmonary nodules are identified. Degenerative changes are seen in the spine. IMPRESSION: Stable appearance of the chest.
== END 2018-10-06 00:37 ==
PROVIDERS: Visit Provider Nurse Practitioner Adult Health
DX: C20 Malignant neoplasm of rectum (principal); C18.8 Malignant neoplasm of overlapping sites of colon; C78.7 Secondary malignant neoplasm of liver and intrahepatic bile duct; Z92.21 Personal history of antineoplastic chemotherapy; Z12.89 Encounter for screening for malignant neoplasm of other sites; Z93.3 Colostomy status
CPT/HCPCS: 74177; 71260; J3490; Q9967

== ENCOUNTER 2018-10-22 00:54 | Outpatient (RCR) | payer MEDICARE, SELFPAY ==
[2018-10-06] MEDS: Normal Saline Flush 10 ML SYR IVP (10:54)
[2018-10-06] MEDS: Heparin 500 UNITS/5 ML SYRINGE IV (11:20)
[2018-10-08] MEDS: Heparin 500 UNITS/5 ML SYRINGE IV (14:12)
[2018-10-08] MEDS: Normal Saline Flush 10 ML SYR IVP (14:12)
[2018-10-08 14:27] LABS: Abs Immature Grans 0.01 k/cumm (0.0-0.09); Absolute Basophil Count 0.01 k/cumm (0.0-0.2); Absolute Eosinophil Count 0.01 k/cumm (0.0-0.7); Absolute Lymphocyte Count 1.03 k/cumm (1.2-3.4); Absolute Monocyte Count 0.45 k/cumm (0.11-0.7); Absolute Neutrophil Count 3.51 k/cumm (1.2-6.7); Basophils % 0.2; Eosinophils % 0.2; HCT 36.5 % (36.0-46.0); HGB 11.5 g/dL (12.0-15.5); Immature Grans % 0.2; Lymphocytes % 20.5; Mean Corp. HGB Concentration 31.5 g/dL (32.0-36.0); Mean Corpuscular Hemoglobin 26.6 pg (27.0-33.0); Mean Corpuscular Volume 84.5 fL (80-95); Mean Platelet Volume 8.4 fL (8.0-11.0); Neutrophils % 69.9; Platelet Count 228 x1000/uL (130-400); RBC 4.32 m/cumm (4.00-5.20); RBC Distribution Width 17.3 % (11.7-14.6); White Blood Cell Count 5.02 k/cumm (4.4-10.8)
[2018-10-08 14:42] LABS: ALT 19 U/L (12-78); AST 15 U/L (15-37); Albumin 2.7 g/dL (3.4-5.0); Alkaline Phosphatase 132 U/L (46-116); Anion Gap 5.3 mmol/L (3-11); BUN 14 mg/dL (7-18); Bilirubin, Total 0.5 mg/dL (0.2-1.0); CO2 30.7 mmol/L (21.0-32.0); CREATININE 0.68 mg/dL (0.55-1.02); Calcium 8.7 mg/dL (8.5-10.1); Chloride 105 mmol/L (98-107); Glucose 154 mg/dL (70-100); Potassium 3.7 mmol/L (3.5-5.1); Sodium 141 mmol/L (136-145)
[2018-10-11 09:00] LABS: CEA 4.4 ng/ml
== END 2018-10-28 23:59 | disposition home or self-care (01) ==
LOC: INF 00:54
PROVIDERS: Visit Provider Internal Medicine Hematology & Oncology
DX: C20 Malignant neoplasm of rectum (principal); Z45.2 Encounter for adjustment and management of vascular access device
CPT/HCPCS: 36591; 74177; 80053; 96523; 71260; 82378; 85025; J3490; Q9967